=== PATIENT | male | born 1935 | race Caucasian/White ===

== ENCOUNTER 2016-11-21 10:55 | Outpatient (CLI) | payer MEDICARE, OTHER ==
[2016-11-21 11:10] LABS: BASOPHILS % 0.3 (0.0-1.5); LYMPHOCYTES # 1.2 # k/uL (0.6-4.0); MEAN CORPUSCULAR HEMOGLOBIN 32.4 pg (28.0-34.0); MONOCYTES # 0.2 # k/uL (0.0-0.9); MONOCYTES % 3.9 % (0.0-11.0); NEUTROPHILS # 2.9 # k/uL (1.4-7.7)
[2016-11-21 11:24] LABS: eGFR (African) > 60; eGFR (Non-African) > 60
== END 2016-11-21 10:56 ==
LOC: LAB 10:55
PROVIDERS: ATTEND Family Medicine
DX: E78.2 Mixed hyperlipidemia (principal); R63.4 Abnormal weight loss
CPT/HCPCS: 80053; 80061; 85025